=== PATIENT | female | born 1970 | race Caucasian/White ===

== ENCOUNTER 2018-06-23 08:15 | Day surgery (SDC) | payer OTHER ==
[~2018-06-23 08:15] MED LIST: Buffered Lidocaine 0.9% SYRIN* 5 ML/SYR SYRINGE INTRADERM ONE; Dexamethasone IV* 4 MG/ML 1 ML (4 MG) IV SLOW PU ONE; Famotidine IV* 10 MG/ML 2 ML (20 mg) IV ONE
[2018-06-23] MEDS ORDERED: ceFAZolin 2 GM PREMIX in ORs 2 GM/50 ML BAG IVPB ONE (08:29)
[2018-06-23] MEDS ORDERED: Dexamethasone IV* 4 MG/ML 1 ML (4 MG) ONE (08:29)
[2018-06-23] MEDS ORDERED: Famotidine IV* 10 MG/ML 2 ML (20 mg) ONE (08:29)
[2018-06-23] MEDS ORDERED: Bupivacaine 0.25% SDV* 30 ML ONE (10:48)
[2018-06-23] MEDS ORDERED: oxyCODONE/Acetamin 5/325 MG* TAB PO PRN (10:48)
[2018-06-23] MEDS ORDERED: DiMENhydriNATE IV* 50 MG/ML VIAL IV PUSH PRN (10:48)
[2018-06-23] MEDS ORDERED: Naloxone* 0.4 MG/ML 1 ML VIAL IV PRN (10:48)
[2018-06-23] MEDS ORDERED: HYDROcodone/ACETAMIN 5-325 MG* 1 TAB PO PRN (10:48)
[2018-06-23] MEDS ORDERED: Midazolam* 1 MG/ML 5 ML VIAL (5 MG) ONE (10:51)
[2018-06-23] MEDS ORDERED: fentaNYL* 50 MCG/ML 5 ML VIAL (250 MCG VIAL) ONE (10:51)
[2018-06-23] MEDS ORDERED: Rocuronium* 10 MG/ML VIAL ONE (10:52)
[2018-06-23] MEDS ORDERED: Lidocaine 2% PF * 5 ML VIAL ONE (10:52)
[2018-06-23] MEDS ORDERED: Propofol* 10 MG/ML 20 ML BTL IV PUSH ONE (10:52)
[2018-06-23] MEDS ORDERED: EPHEDrine (Pressors)* 50 MG/ML VIAL ONE (11:48)
[2018-06-23] MEDS ORDERED: Neostigmine Methylsulfate* 1 MG/ML 10 ML VIAL (1 mg/ml) ONE (12:10)
[2018-06-23] MEDS ORDERED: Glycopyrrolate IV* 0.2 MG/ML 1 ML VIAL ONE (12:10)
[2018-06-23] MEDS ORDERED: Ondansetron INJ* 2 MG/ML VIAL ONE (12:11)
[2018-06-23] MEDS ORDERED: fentaNYL* 50 MCG/ML 2 ML VIAL (100 MCG VIAL) ONE (13:04)
[2018-06-23] MEDS ORDERED: HYDROcodone/ACETAMIN 5-325 MG* 1 TAB ONE (13:05)
[2018-06-23] MEDS: fentaNYL* 50 MCG/ML 2 ML VIAL (100 MCG VIAL) IV PRN ×2 (13:06→13:14)
--- NOTE | 2018-06-23 13:12 | OP ---
Operative Report - Blank - Operative Report Date of Operation: 06/23/18 Note: PATIENT: Rosemarie Gutierrez DATE OF : 1970 DATE OF SURGERY: 06/23/2018 SURGEON: Dimitris Menon MD CHARGE ENTRY CLERK: NADYA Mae, whos assistance was necessary for positioning, retraction, help with instrumentation, and closure. ANESTHESIOLOGIST: Dr. Hui PREOPERATIVE DIAGNOSIS: Left Achilles tendinopathy and calcaneal exostosis POSTOPERATIVE DIAGNOSIS: Left Achilles tendinopathy, Achilles tendon tear and calcaneal exostosis OPERATION: 1. Left Achilles tendon debridement and secondary repair 2. Left calcaneus partial excision/saucerization 3. Left Achilles tendon lengthening ANESTHESIA: GETA IMPLANTS: Arthrex Speedbridge TOURNIQUET TIME 60 minutes with a well-padded thigh tourniquet at 275mmHg SPECIMENS: none ESTIMATED BLOOD LOSS: minimal COMPLICATIONS: none STATUS: Stable from the operating room to the recovery room and then home. INDICATIONS FOR PROCEDURE: Rosemarie has had persistent pain from insertional Achilles tendinopathy, refractory to non-op management. Both operative and non operative treatment alternatives were reviewed. Further, the nature and risks of surgery were reviewed in careful detail in the office as well as in the preoperative holding area. Our discussions regarding the risks of surgery included, but were not limited to, infection, wound problems, nerve injury, neuroma, RSD, persistent symptoms, blood clot, rupture or failure to heal, failure of the surgery, and even the remote chance of catastrophic complication, including loss of limb. DESCRIPTION OF PROCEDURE: The patient was seen in the preoperative holding unit and informed written consent was obtained. The appropriate extremity was marked. The patient was then brought to the operating room and carefully positioned on the operating room table in the prone position. Anesthesia was induced. All bony prominences were padded with great care. A well-padded thigh tourniquet was placed. A chlorhexidine based pre-scrub was performed followed by a chloraprep prep and drape in standard sterile fashion. A surgical safety pause was then conducted in which we confirmed the appropriate patient, extremity, planned procedure, availability of equipment, indication and administration of prophylactic antibiotics, and DVT prophylaxis in the form of a compression boot on the non- surgical extremity. Exsanguination of the extremity was performed and the tourniquet was inflated. I began by utilizing a longitudinal incision overlying the posteromedial of the Achilles. I then carefully dissected down to the tendinous layer, maintaining full-thickness flaps. I exposed the Achilles tendon and removed it from the posterior aspect of the calcaneus. There was some degeneration of the tendon, which was sharply excised with a 15 blade scalpel. There was a split longitudinal tear of the tendon which was then repaired. I then exposed the calcaneal exostoses as well as the posterior-superior calcaneal tuberosity, which was prominent. I then utilized a small oscillating saw to excise the exostosis and prominent aspect of the calcaneal tuberosity, thus performing a saucerization of the calcaneus. I made sure all edges were smooth with a rasp and [place]. There was quite a bit of tension on the tendon so I performed a triple cut Achilles tendon lengthening with a 15 blade scalpel. This provided improved excursion of the tendon down to the calcaneus. I then used an Arthrex speedbridge to perform a double row repair of the Achilles insertion on to the freshly osteotomized surface of the posterior calcaneus. This provided excellent fixation and compression of the insertional Achilles. The wound was then copiously irrigated and meticulously closed in layers utilizing 3-0 Monocryl for the subdermal layer, and 3-0 nylon for the skin. A sterile dressing was then applied followed by a splint with the ankle in resting equinus position. The patient was then awakened from anesthesia and transferred to the recovery room in stable condition. There were no complications. All needle and sponge counts were correct at the end of the case. ATTESTATION: I attest I was present and scrubbed and performed the critical portions of the procedure myself. POSTOPERATIVE PLAN: The patient will remain fra-beeftm-noehari for an anticipated duration is 6 weeks and follow up in two weeks for likely suture removal and Steri-Strip application.
[2018-06-23] MEDS ORDERED: DiMENhydriNATE IV* 50 MG/ML VIAL ONE (14:13)
[2018-06-23 14:46] VITALS: BP 127/65
== END 2018-06-23 15:19 | disposition home or self-care (01) ==
LOC: OR 08:15
PROVIDERS: ATTEND Orthopaedic Surgery
DX: M76.62 Achilles tendinitis, left leg (principal); M77.32 Calcaneal spur, left foot; S86.012A Strain of left Achilles tendon, initial encounter; X58.XXXA Exposure to other specified factors, initial encounter; Y92.9 Unspecified place or not applicable
CPT/HCPCS: 76001; C1713; J0690; J1100; J1240; J2250; J2405; J2704; J2710; J3010